=== PATIENT | male | born 1990 | race American Indian/Alaskan Native ===

== ENCOUNTER 2017-03-14 10:30 | Emergency (ER) | payer OTHER ==
[2017-03-14 11:04] VITALS: BP 141/74
[2017-03-14] MEDS ORDERED: MOTRIN PO ONE (14:40)
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
== END 2017-03-14 15:32 | disposition home or self-care (01) ==
LOC: ED 10:30
DX: S13.4XXA Sprain of ligaments of cervical spine, initial encounter (principal); F17.200 Nicotine dependence, unspecified, uncomplicated; V89.2XXA Person injured in unspecified motor-vehicle accident, traffic, initial encounter; Y93.89 Activity, other specified; Y92.89 Other specified places as the place of occurrence of the external cause; Y99.8 Other external cause status
CPT/HCPCS: 99282